=== PATIENT | male | born 1985 | race Caucasian/White ===

== ENCOUNTER 2025-04-06 09:04 | Outpatient (CLI) | payer MEDICARE, SELFPAY | END 2025-04-06 09:05 | disposition home or self-care (01) | PROVIDERS: Visit Provider Otolaryngology | DX: H74.8X2 Other specified disorders of left middle ear and mastoid (principal); H69.92 Unspecified Eustachian tube disorder, left ear | CPT/HCPCS: 92557; 92567 ==